=== PATIENT | male | born 1970 | race Two or more races ===

== ENCOUNTER 2025-04-27 09:28 | Emergency (ER) | payer OTHER ==
[~2025-04-27] VITALS: Ht 180.3 cm; Wt 99.8 kg
[2025-04-27 09:34] VITALS: BP 121/78; O2SAT 97
[2025-04-27] MEDS ORDERED: KETOROLAC TROMETHAMINE 60 MG VIAL IM ONE (10:00)
[2025-04-27] MEDS ORDERED: NORFLEX100MG PO (11:22)
== END 2025-04-27 11:58 | disposition home or self-care (01) ==
LOC: ER 09:28
DX: S99.821A Other specified injuries of right foot, initial encounter (principal); W18.49XA Other slipping, tripping and stumbling without falling, initial encounter; Y93.89 Activity, other specified; Y92.89 Other specified places as the place of occurrence of the external cause